=== PATIENT | male | born 1960 ===

== ENCOUNTER 2021-04-24 08:05 | Outpatient (CLI) | payer OTHER ==
[~2021-04-24 08:05] MED LIST: EFFEXOR XR37.5 MG; KLONOPIN1 MG/TAB; LEXAPRO5 MG; REMERON15 MG/UDTA; WELLBUTRIN XL300 MG
== END 2021-04-24 08:19 | disposition home or self-care (01) ==
LOC: SONOGRAMA 08:05
PROVIDERS: ATTEND Internal Medicine Gastroenterology
DX: R10.84 Generalized abdominal pain (principal)

== ENCOUNTER 2021-04-24 09:36 | Outpatient (CLI) | payer OTHER | END 2021-04-24 09:37 | disposition home or self-care (01) | LOC: LAB 09:36 | PROVIDERS: ATTEND Internal Medicine Gastroenterology | DX: E03.9 Hypothyroidism, unspecified (principal); E78.5 Hyperlipidemia, unspecified; E11.9 Type 2 diabetes mellitus without complications; F31.9 Bipolar disorder, unspecified; I51.9 Heart disease, unspecified; K21.9 Gastro-esophageal reflux disease without esophagitis ==

== ENCOUNTER 2021-08-23 09:15 | Outpatient (CLI) | payer OTHER | END 2021-08-23 09:16 | disposition home or self-care (01) | LOC: RAD 09:15 | DX: M54.50 Low back pain, unspecified (principal) ==

== ENCOUNTER 2021-10-11 09:50 | Outpatient (CLI) | payer OTHER | END 2021-10-11 09:59 | disposition home or self-care (01) | LOC: RAD 09:50 | PROVIDERS: ATTEND Pediatrics | DX: S22.42XD Multiple fractures of ribs, left side, subsequent encounter for fracture with routine healing (principal) ==

== ENCOUNTER 2022-01-13 13:43 | Outpatient (CLI) | payer OTHER | END 2022-01-14 15:31 | disposition home or self-care (01) | LOC: TOM 13:43 | PROVIDERS: ATTEND Obstetrics & Gynecology | DX: S02.85XA Fracture of orbit, unspecified, initial encounter for closed fracture (principal) ==

== ENCOUNTER 2022-02-21 09:39 | Outpatient (CLI) | payer OTHER | END 2022-02-21 09:48 | disposition home or self-care (01) | LOC: RAD 09:39 | PROVIDERS: ATTEND Pediatrics | DX: M25.552 Pain in left hip (principal) ==

== ENCOUNTER 2022-08-14 09:23 | Outpatient (CLI) | payer OTHER | END 2022-08-14 09:37 | disposition home or self-care (01) | LOC: RAD 09:23 | PROVIDERS: ATTEND Physical Medicine & Rehabilitation | DX: M54.17 Radiculopathy, lumbosacral region (principal); M25.551 Pain in right hip | CPT/HCPCS: 72148 ==